=== PATIENT | male | born 1970 | race Caucasian/White ===

== ENCOUNTER 2024-01-14 06:00 | Emergency (ER) | payer OTHER ==
[~2024-01-14] VITALS: Ht 170.2 cm; Wt 108.9 kg
[2024-01-14 06:14] VITALS: BP_SYST 149; PULSE 71; RESP 20; TEMP 97.9; O2SAT 97
[2024-01-14] MEDS: LIDOCAINE 1% 10 MG/ML, 20 ML MDV INJ ONE (06:30)
[2024-01-14] MEDS ORDERED: AUG875 PO (06:40)
[2024-01-14 06:45] VITALS: BP_SYST 149; PULSE 71; RESP 20; TEMP 97.9; O2SAT 97
== END 2024-01-14 06:45 | disposition home or self-care (01) ==
LOC: SED 06:00
DX: L02.416 Cutaneous abscess of left lower limb (principal)
CPT/HCPCS: 99284; J2001